=== PATIENT | male | born 1985 | race African-American/Black ===

== ENCOUNTER 2021-04-06 17:12 | Emergency (ER) | payer SELFPAY ==
[~2021-04-06] VITALS: Ht 170.2 cm; Wt 91.0 kg
[2021-04-06 17:20] VITALS: BP 140/85
[2021-04-06] MEDS ORDERED: METH-653 MT (18:20)
[2021-04-06] MEDS ORDERED: TOPUD MT (18:20)
[2021-04-06] MEDS ORDERED: ACETAMINOPHEN 325MG TABLET PO ONE (18:30)
[2021-04-06] MEDS ORDERED: METHOCARBAMOL 500MG TABLET PO ONE (18:30)
== END 2021-04-06 19:05 | disposition home or self-care (01) ==
LOC: ER 17:12
DX: R51.9 Headache, unspecified (principal); M25.551 Pain in right hip; V43.52XA Car driver injured in collision with other type car in traffic accident, initial encounter; Y93.89 Activity, other specified; Y92.414 Local residential or business street as the place of occurrence of the external cause; Z87.828 Personal history of other (healed) physical injury and trauma; Z18.10 Retained metal fragments, unspecified
CPT/HCPCS: 99283